=== PATIENT | male | born 1950 | race Caucasian/White ===

== ENCOUNTER 2019-02-16 09:01 | Emergency (ER) | payer OTHER, MEDICARE ==
--- NOTE | 2019-02-16 09:03 | PDOC ---
History of Present Illness - General Chief Complaint: Laceration Stated Complaint: SUSTAINED LACERATION TO TOP OF RIGHT HAND Time Seen by Provider: 02/16/19 09:03 History Source: Patient Exam Limitations: No Limitations - History of Present Illness Initial Comments: 02/16/19 09:25 68 YOM with no medical history presenting with right hand laceration ~1.5cm while taking out microwave in kitchen and cutting against sharp metal piece. clean cut, no contamination from metal piece bleeding controlled. no other injuries or external signs of trauma. no weakness, numbness, tingling, range of motion intact right hand dominant last tdap unclear took motrin at 830AM with some improvement. 02/16/19 09:27 02/16/19 09:30 Past History - Past Medical History Allergies/Adverse Reactions: Allergies Allergy/AdvReac Type Severity Reaction Status Date / Time No Known Allergies Allergy Unverified 02/16/19 09:02 Home Medications: Ambulatory Orders NK [No Known Home Medication] 02/16/19 Review of Systems - Review of Systems Comments:: 02/16/19 09:26 Constitutional: no fevers or chills. MUSCULOSKELETAL: No joint pain and swelling. No muscle pain/arthralgias. SKIN: no redness or skin changes, no discharge, no rash. +wound, +hand laceration. Hematologic: no easy bruising/bleeding. no active bleeding NEUROLOGIC: No weakness, numbness or tingling. Allergic/Immunologic: no allergies All other systems reviewed and negative, or as documented in HPI. *Physical Exam - Physical Exam Comments: 02/16/19 09:27 General: NAD, well appearing Vascular: 2+ radialis pulses symmetric and equal. 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 sensation grossly intact in median/radial/ ulnar distribution. MSK: soft compartments, Cap refill <2 sec. 2+ radialis pulses bilaterally and symmetric. no joint tenderness. no wrist or phalangeal tenderness, FROM. Skin: color normal color, warm and well perfused. Laceration to right dorsum of hand on lateral aspect, 1.5cm linear laceration, superficial, nonbleeding, nontender. +ecchymosis and swelling to right dorsal hand; small abrasion to right distal forearm on ulnar aspect, nonbleeding 02/16/19 09:54 Procedures - Laceration/Wound Repair Right Lateral Dorsal Hand Wound Length: to 2.5 cm Wound Explored: clean Wound's Depth, Shape: superficial Irrigated w/ Saline: Yes Betadine Prep: No Anesthesia: 1% Lidocaine Amount of Anesthetic (ccs): 2 Wound Debrided: minimal Wound Repaired With: Sutures Suture Size/Type: 5:0 Number of Sutures: 3 Layer Closure: No Sterile Dressing Applied: Yes Splint Applied: No Medical Decision Making - Medical Decision Making 02/16/19 09:28 abrasion cleaned with bacitracin/bandaid wound/laceration assessed and repaired with 3 sutures, w/o complications, bleeding controlled. area cleaned and dried, dressings placed with topical bacitracin. monitor for signs of infection including fevers or chills, redness, streaking, swelling, purulence, malodor. keep dry x 24 hours, then may wash with soap and water 2-3X per day, topical antibiotics such as neosporin or bacitracin. follow up in 10 days for suture removal. motrin/tylenol for pain control. tetanus updated today. pt made aware of impression and plan. 02/16/19 09:54 *DC/Admit/Observation/Transfer Diagnosis at time of Disposition: Abrasion Hand laceration Qualifiers: Encounter type: initial encounter Foreign body presence: unspecified Laterality : right Qualified Code(s): S61.411A - Laceration without foreign body of right hand, initial encounter - Discharge Dispostion Disposition: HOME Condition at time of disposition: Stable Decision to Admit order: No - Referrals - Patient Instructions Printed Discharge Instructions: DI for Laceration Repair Additional Instructions: Wound dressed with topical Bacitracin and sterile gauze. Follow up with your primary care doctor within 48-72 hours for a wound check. Keep sutures covered and dry for 24 hours then clean with soap and water daily - do not scrub. Apply bacitracin or neosporin twice a day with warm soaks and cover with gauze/ dressings. Return to ED or urgent care for suture removal 10 days. Return to the ED for any worsening pain, redness, streaking (red lines), swelling, fever or chills. Keep the wound clean and as dry as possible. Do not immerse or soak the wound in water. This means no swimming, washing dishes (unless thick rubber gloves are used), baths, or hot tubs until the stitches are removed or after about two weeks if absorbable suture material was used. Leave original bandages on the wound for the first 24 hours. After this time, showering or rinsing is recommended, rather than bathing. the first day, remove old bandages and gently cleanse the wound with soap and water. Cleansing twice a day prevents buildup of debris and will result in easier suture removal. - Post Discharge Activity
[2019-02-16 09:09] VITALS: BP 138/86; PULSE 65; TEMP 98; BMI 24.3
[2019-02-16] MEDS ORDERED: DIPHTH,PERTUSS(ACELL),TET 0.5 ML DISP.SYRIN IM ONE ×2 (09:25→09:27)
[2019-02-16] MEDS ORDERED: IBUPROFEN 600 MG TABLET (FP) PO ONE ×2 (09:25→09:26)
[2019-02-16] MEDS ORDERED: ACETAMINOPHEN 325 MG TABLET (FP) PO ONE (09:30)
[2019-02-16] MEDS ORDERED: ACETAMINOPHEN 325 MG TABLET (FP) ONE (09:53)
== END 2019-02-16 10:01 | disposition home or self-care (01) ==
LOC: FER 09:01
PROC: 0HQFXZZ Repair Right Hand Skin, External Approach (ICD-10-PCS; principal; 2019-02-16)
PROC: 3E0234Z Introduction of Serum, Toxoid and Vaccine into Muscle, Percutaneous Approach (ICD-10-PCS; 2019-02-16)
DX: S61.411A Laceration without foreign body of right hand, initial encounter (principal); W26.0XXA Contact with knife, initial encounter; Y93.G1 Activity, food preparation and clean up; Y92.89 Other specified places as the place of occurrence of the external cause
CPT/HCPCS: 12001-25; 90471; 90715; 99282-25

== ENCOUNTER 2019-02-23 09:45 | Emergency (ER) | payer OTHER, MEDICARE ==
[2019-02-23 09:52] VITALS: BP 130/75; PULSE 76; TEMP 97.7; BMI 24.3
--- NOTE | 2019-02-23 10:15 | PDOC ---
History of Present Illness - General Chief Complaint: Suture/Staple Removal(Here) Stated Complaint: SUTURE REMOVAL RIGHT HAND Time Seen by Provider: 02/23/19 10:10 - History of Present Illness Initial Comments: 02/23/19 10:13 68 years old with no significant past medical history presents to the emergency department for suture removal 3 stitches to right hand placed 7 days ago well-appearing slight redness at the suture sites but no obvious infection no pain no bleeding or discharge no pus Past History - Past Medical History Allergies/Adverse Reactions: Allergies Allergy/AdvReac Type Severity Reaction Status Date / Time No Known Allergies Allergy Unverified 02/16/19 09:02 Home Medications: Ambulatory Orders NK [No Known Home Medication] 02/16/19 COPD: No - Immunization History Immunization Up to Date: No - Suicide/Smoking/Psychosocial Hx Smoking History: Never smoked Information on smoking cessation initiated: No Hx Alcohol Use: No Drug/Substance Use Hx: No Review of Systems - Review of Systems Comments:: 02/23/19 10:14 ROS: A complete review of 10 out of 10 review of systems is taken and is negative apart from what is previously mentioned below and in the HPI. *Physical Exam - Vital Signs Last Vital Signs Temp Pulse Resp BP Pulse Ox 97.7 F 76 16 130/75 100 02/23/19 09:47 02/23/19 09:47 02/23/19 09:47 02/23/19 09:47 02/23/19 09:47 - Physical Exam Comments: 02/23/19 10:15 Vitals: Triage Vital signs reviewed General Appearance: no acute distress, well nourished well developed, Extremities: Full range of motion to all extremities, no cyanosis, clubbing, or edema Skin: Warm and dry, 3 sutures to right dorsum ulnar aspect healing small amount of redness where the suture carson are no obvious cellulitis or signs of infection, Neurovascularly intact distally Psych: normal mood, normal affect Medical Decision Making - Medical Decision Making 02/23/19 10:16 Removal no indication for antibiotics at this time patient instructed to return to ED for any worsening redness swelling pus signs of infection or for any concerns. Findings, the need for follow-up, strict return instructions discussed patient. *DC/Admit/Observation/Transfer Diagnosis at time of Disposition: Visit for suture removal - Discharge Dispostion Condition at time of disposition: Stable Decision to Admit order: No - Referrals - Patient Instructions Printed Discharge Instructions: DI for Suture Removal Additional Instructions: Leave Steri-Strips on until they fall off. Keep covered with Band-Aid. Return to ED for any redness swelling pus signs of infection or for any concerns otherwise follow-up with her primary care doctor within 1-2 weeks. - Post Discharge Activity
== END 2019-02-23 10:31 | disposition home or self-care (01) ==
LOC: FER 09:45
DX: Z48.02 Encounter for removal of sutures (principal)
CPT/HCPCS: 99281-25

== ENCOUNTER 2021-11-23 09:00 | Emergency (ER) | payer OTHER, MEDICARE ==
[2021-11-23] MEDS ORDERED: SODIUM CHLORIDE 0.9% 1000 ML INFUS.BAG IV ONE (09:28)
[2021-11-23 09:29] VITALS: BP 150/80; PULSE 60; TEMP 97.5; BMI 24.3
[2021-11-23] MEDS ORDERED: ONDANSETRON 4 MG/2 ML VIAL IVPUSH ONE (09:48)
[2021-11-23] MEDS ORDERED: ONDANSETRON 4 MG/2 ML VIAL ONE (09:49)
[2021-11-23 10:06] LABS: HEMATOCRIT 39.8 % (35.4-49); HEMOGLOBIN 13.7 G/dL (11.7-16.9); MCH 31.6 pg (25.7-33.7); MCHC 34.5 g/dl (32.0-35.9); MEAN CELL VOLUME 91.7 fl (80-96); MEAN PLT VOLUME 8.9 fl (7.5-11.1); PLATELET COUNT 108.2 10^3/uL (134-434); RBC 4.34 10^6/uL (4.00-5.60); RDW 14.1 % (11.9-15.9); WHITE BLOOD COUNT 3.6 10^3/uL (4.0-10.8)
[2021-11-23 10:12] LABS: ALBUMIN 3.6 g/dl (3.4-5.0); BILIRUBIN,TOTAL 0.5 mg/dl (0.2-1); CALCIUM 8.7 mg/dl (8.5-10); TOT PROT 5.7 g/dl (6.4-8.2)
== END 2021-11-23 13:00 | disposition home or self-care (01) ==
LOC: FER 09:00
PROC: 3E033GC Introduction of Other Therapeutic Substance into Peripheral Vein, Percutaneous Approach (ICD-10-PCS; principal; 2021-11-23)
DX: R55 Syncope and collapse (principal); R11.0 Nausea
CPT/HCPCS: 36415; 71046-TC-FY; 80053; 81003; 83690; 84484; 85027; 93005; 99285-25